=== PATIENT | female | born 1940 | race Caucasian/White ===

== ENCOUNTER → 2017-11-07 | Outpatient (CLI) | payer MEDICARE, BC ==
[~2017-11-07] MED LIST: ACET325T9 PO; ALEN70TA3 PO; ASPI-630 PO; CALC-77 PO; CARV6.25 PO; CHOL200074 PO; ESTR42.53 VG; IBUP200T44 PO; LISI-338 PO; OMEG300C PO; SIMV40TA3 PO; SULF1TAB24 PO
--- NOTE | 2017-11-07 16:08 | RAD ---
DATE: 11/07/2017 EXAM: DIGITAL SCREEN BILAT W/CAD HISTORY: Routine screening COMPARISON: 10/20/2015 This study was interpreted with the benefit of Computerized Aided Detection (CAD). The breast parenchyma shows scattered fibroglandular densities. Breast parenchyma level B. FINDINGS: No new or enlarging breast densities are seen. Benign type calcifications are present in both breasts. No suspicious microcalcifications have developed. IMPRESSION: Stable mammograms without evidence of malignancy. BI-RADS CATEGORY: 2 BENIGN FINDING(S) RECOMMENDED FOLLOW-UP: 12M 12 MONTH FOLLOW-UP PQRS compliance statement: Patient information was entered into a reminder system with a target due date for the next mammogram. Mammography is a sensitive method for finding small breast cancers, but it does not detect them all and is not a substitute for careful clinical examination. A negative mammogram does not negate a clinically suspicious finding and should not result in delay in biopsying a clinically suspicious abnormality. "Our facility is accredited by the [employer] Mammography [employer]."
== END | disposition home or self-care (01) ==
LOC: MAMMO 13:23
PROVIDERS: ATTEND Family Medicine
DX: Z12.31 Encounter for screening mammogram for malignant neoplasm of breast (principal); Z85.3 Personal history of malignant neoplasm of breast
CPT/HCPCS: 77067

== ENCOUNTER → 2018-01-15 | Outpatient (CLI) | payer MEDICARE, BC ==
--- NOTE | 2018-01-15 17:32 | RAD ---
INDICATION: Fall 2 days ago with continued pain on right side. TECHNIQUE: Right rib series with PA chest radiograph contains 5 images. No comparison is available. FINDINGS: There is basilar atelectasis and/ or infiltrate bilaterally. There could be a component of scarring. There is no pneumothorax or pleural effusion apparent. A displaced rib fracture or osseous lesion is not apparent. IMPRESSION: Negative for displaced rib fracture. Basilar opacities are most likely atelectasis. Multifocal pneumonia or component of scarring is considered less likely. Electronically signed by: Andrés Randall MD (01/15/2018 5:29 PM) [facility]
== END | disposition home or self-care (01) ==
LOC: RAD 16:57
PROVIDERS: ATTEND Neuromusculoskeletal Medicine & OMM
DX: R07.81 Pleurodynia (principal); Z85.3 Personal history of malignant neoplasm of breast
CPT/HCPCS: 71101

== ENCOUNTER → 2019-02-14 | Outpatient (CLI) | payer MEDICARE, BC ==
--- NOTE | 2019-02-15 09:38 | RAD ---
DATE: 02/14/2019 1:26 PM EXAM: DIGITAL SCREEN BILAT W/CAD HISTORY: routine screening evaluation. COMPARISON: Prior mammographic imaging 11/07/2017, 04/20/2016 Bilateral CC and MLO views of the breasts were performed. Bilateral breast tomosynthesis was performed in CC and MLO projections. This study was interpreted with the benefit of Computerized Aided Detection (CAD). FINDINGS: Breast Density: SCATTERED The breast parenchyma shows scattered fibroglandular densities. Breast parenchyma level B Benign calcifications are present. The parenchymal pattern appears stable. No suspicious masses, microcalcifications or architectural distortion is present to suggest malignancy in either breast. The visualized axillae are unremarkable. IMPRESSION: No mammographic evidence of malignancy. BI-RADS CATEGORY: 2 BENIGN FINDING(S) RECOMMENDED FOLLOW-UP: 12M 12 MONTH FOLLOW-UP Annual screening mammography is recommended, unless clinically indicated sooner based on symptoms or change in physical exam. PQRS compliance statement: Patient information was entered into a reminder system with a target due date for the next mammogram. Mammography is a sensitive method for finding small breast cancers, but it does not detect them all and is not a substitute for careful clinical examination. A negative mammogram does not negate a clinically suspicious finding and should not result in delay in biopsying a clinically suspicious abnormality. "Our facility is accredited by the [employer] Mammography Program."
== END | disposition home or self-care (01) ==
LOC: MAMMO 12:43
PROVIDERS: ATTEND Family Medicine
DX: Z12.31 Encounter for screening mammogram for malignant neoplasm of breast (principal); N64.89 Other specified disorders of breast
CPT/HCPCS: 77067

== ENCOUNTER → 2019-05-09 | Outpatient (CLI) | payer MEDICARE, BC ==
[~2019-05-09] MED LIST changes: +SIMV40TA18 PO; -SIMV40TA3 PO
--- NOTE | 2019-05-09 15:11 | RAD ---
EXAM: Right ankle 3 views. HISTORY: Right ankle pain after injury. COMPARISON: None. FINDINGS: Three views of the right ankle are obtained. A small ossicle at the tip of the lateral malleolus is consistent with an avulsion fracture there is soft tissue swelling laterally greater than medially. Alignment is normal. Joint spaces are maintained. There is a moderate plantar calcaneal spur. IMPRESSION: 1. Small avulsion fracture at the tip of the lateral malleolus. Electronically signed by: Leanna Martínez MD (05/09/2019 3:08 PM) [facility]
== END | disposition home or self-care (01) ==
LOC: PMG 12:45
PROVIDERS: ATTEND Family Medicine
DX: S82.61XA Displaced fracture of lateral malleolus of right fibula, initial encounter for closed fracture (principal); M77.31 Calcaneal spur, right foot; X58.XXXA Exposure to other specified factors, initial encounter; Y93.89 Activity, other specified; Y92.89 Other specified places as the place of occurrence of the external cause; Y99.8 Other external cause status
CPT/HCPCS: 73610

== ENCOUNTER 2019-08-13 11:00 | Emergency (ER) | payer MEDICARE, BC ==
[~2019-08-13] VITALS: Ht 149.9 cm; Wt 50.4 kg
--- NOTE | 2019-08-13 11:55 | PHYS DOC ---
Past History Past Medical History: High Cholesterol, Hypertension, Hypothyroid, GA, Other Additional Past Medical Histor: IRREGULAR HEART BEAT, OSTEOPOROSIS Past Surgical History: Pacemaker Additional Smoking Information: QUIT IN 1997 Alcohol Use: None Adult General Chief Complaint Chief Complaint: LOWER EXTREMITY SWELLING [facility] 79-year-old female presents with left leg swollen greater than right. The patient noticed this last couple of days. The only thing that has changed recently she is being treated for a UTI. She was given ciprofloxacin 5 days ago. She denies any falls or trauma, however she did have a fall down some stairs 6 weeks ago. This affected her right leg more than her left. She is already on our close but is unsure why. She believes it could be for atrial fibrillation. She denies having a valve transplant. She denies fever or chills. She has had some mild shortness of breath, but no chest pain. Review of Systems Review of Systems Constitutional: Denies fever or chills [] Eyes: Denies change in visual acuity, redness, or eye pain [] HENT: Denies nasal congestion or sore throat [] Respiratory: Mild shortness of breath. Denies cough. [] Cardiovascular: No additional information not addressed in HPI [] GI: Denies abdominal pain, nausea, vomiting, bloody stools or diarrhea [] : Denies dysuria or hematuria [] Musculoskeletal: Left leg swollen more than right[] Integument: Denies rash or skin lesions [] Neurologic: Denies headache, focal weakness or sensory changes [] Endocrine: Denies polyuria or polydipsia [] All other systems were reviewed and found to be within normal limits, except as documented in this note. Allergies Allergies Allergies Coded Allergies Type Severity Reaction Last Updated Verified No Known Drug Allergies 11/07/14 No Physical Exam Physical Exam Constitutional: Well developed, well nourished, no acute distress, non-toxic appearance. [] HENT: Normocephalic, atraumatic, bilateral external ears normal, oropharynx moist, no oral exudates, nose normal. [] Eyes: PERRLA, EOMI, conjunctiva normal, no discharge. [] Neck: Normal range of motion, no tenderness, supple, no stridor. [] Cardiovascular: Heart rate regular rhythm, 3/6 systolic murmur [] Lungs & Thorax: Bilateral breath sounds clear to auscultation [] Abdomen: Bowel sounds normal, soft, no tenderness, no masses, no pulsatile mas ses. [] Skin: Warm, dry, no erythema, no rash. [] Back: No tenderness, no CVA tenderness. [] Extremities: Left lower leg greater than the right from the knee inferior. No obvious signs of trauma.[] Neurologic: Alert and oriented X 3, normal motor function, normal sensory function, no focal deficits noted. [] Psychologic: Affect normal, judgement normal, mood normal. [] Current Patient Data Vital Signs Vital Signs Date Time Temp Pulse Resp B/P (MAP) Pulse Ox O2 Delivery O2 Flow Rate FiO2 08/13/19 11:15 98.4 68 18 139/81 (100) 97 Room Air EKG EKG [] Radiology/Procedures Radiology/Procedures [] Impressions: Left lower extremity venous Doppler dated 08/13/2019. No comparison available. Clinical data indication: Left leg swelling. FINDINGS: Grayscale, color-flow and spectral waveform analysis performed. There is normal compressibility, phasicity and augmentation of flow throughout. No filling defects are seen. There is a complex popliteal cyst measuring up to 6.3 cm craniocaudal. IMPRESSION: 1. No evidence of left lower extremity deep vein thrombosis. 2. Moderate size complex popliteal cyst. Electronically signed by: Stacie Hill MD (08/13/2019 12:41 PM) [facility] DICTATED AND SIGNED BY: STACIE HILL MD DATE: 08/13/19 1241 CC: EZEQUIEL KING DO; LORIN GALEANA MD ~ Course & Med Decision Making Course & Med Decision Making Pertinent Labs and Imaging studies reviewed. (See chart for details) The patient does not have a DVT, but she does have a complex popliteal cyst. See official report for details. Her labs are unremarkable except for a potassium of 3.1. I will give her 40 mEq of oral potassium. She has an elevated proBNP, but this is not age-adjusted. She does not clinically apear to be a CHF exacerbation. Her urinalysis is negative for infection. I have advised the patient that she follow up with her primary care physician to discuss options for this cyst. She is stable for discharge at this time. [] Dragon Disclaimer Dragon Disclaimer This electronic medical record was generated, in whole or in part, using a voice recognition dictation system. Departure Departure: Impression: Primary Impression: Swelling of left lower extremity Additional Impression: Popliteal cyst Disposition: HOME, SELF-CARE Condition: STABLE Referrals: LORIN GALEANA MD (PCP) Patient Instructions: Epidermal Cyst, [id number] Problem Qualifiers Additional Impression: Popliteal cyst Laterality: left Qualified Codes: M71.22 - Synovial cyst of popliteal space [Diaz], left knee EZEQUIEL KING DO Aug 13, 2019 11:55
[2019-08-13 12:30] LABS: CALCIUM 9.3 mg/dL (8.5-10.1); CREATININE 0.9 mg/dL (0.6-1.0); GFR 60.4; POTASSIUM 3.1 mmol/L (3.5-5.1)
[2019-08-13] MEDS ORDERED: IV NORMAL SALINE 500ML 500 ML IV ONE (12:30)
[2019-08-13 12:36] LABS: BASO # 0.1 x10^3/uL (0.0-0.2); BASO % 1 % (0-3); EOS % 0 % (0-3); HEMATOCRIT 38.9 % (36.0-47.0); HEMOGLOBIN 12.7 g/dL (12.0-15.5); LYMPH # 1.1 x10^3/uL (1.0-4.8); LYMPH % 8 % (24-48); MEAN CORPUSCULAR HEMOGLOBIN 29 pg (25-35); MEAN CORPUSCULAR HGB CONC 33 g/dL (31-37); MEAN CORPUSCULAR VOLUME 89 fL (79-100); MONO # 1.2 x10^3/uL (0.0-1.1); MONO % 9 % (0-9); NEUT # 10.9 x10^3uL (1.8-7.7); NEUT % 82 % (31-73); PLATELET COUNT 290 x10^3/uL (140-400); RED CELL DISTRIBUTION WIDTH 14.8 % (11.5-14.5); WHITE BLOOD COUNT 13.3 x10^3/uL (4.0-11.0)
[2019-08-13 12:43] LABS: ALBUMIN 2.9 g/dL (3.4-5.0); ALBUMIN/GLOBULIN RATIO 0.5 (1.0-1.7); TOTAL BILIRUBIN 0.3 mg/dL (0.2-1.0); TOTAL PROTEIN 8.5 g/dL (6.4-8.2)
--- NOTE | 2019-08-13 12:44 | RAD ---
Left lower extremity venous Doppler dated 08/13/2019. No comparison available. Clinical data indication: Left leg swelling. FINDINGS: Grayscale, color-flow and spectral waveform analysis performed. There is normal compressibility, phasicity and augmentation of flow throughout. No filling defects are seen. There is a complex popliteal cyst measuring up to 6.3 cm craniocaudal. IMPRESSION: 1. No evidence of left lower extremity deep vein thrombosis. 2. Moderate size complex popliteal cyst. Electronically signed by: Damon Hill MD (08/13/2019 12:41 PM) [facility]
[2019-08-13] MEDS ORDERED: POTASSIUM CHLORIDE 20 MEQ TABLET.ER. PO ONE (13:15)
[2019-08-13 13:35] LABS: COLOR,URINE YELLOW
[2019-08-13 13:36] LABS: BILIRUBIN,URINE NEG (NEG); CLARITY,URINE HAZY; GLUCOSE,URINE NEG (NEG)
[2019-08-13 13:37] LABS: AMORPHOUS SEDIMENT,UR PRESENT /HPF; BACTERIA,URINE 0 /HPF (0-FEW); NITRITE,URINE NEG (NEG); SQUAMOUS EPITHELIAL CELL,UR FEW /LPF; UROBILINOGEN,URINE 0.2 mg/dL (0.2 mg/dL)
[2019-08-13] MEDS ORDERED: POTASSIUM BICARB 20 MEQ EFFERVESCENT TABLET. PO ONE (14:00)
[2019-08-13 14:28] VITALS: BP 144/58
== END 2019-08-13 14:28 | disposition home or self-care (01) ==
LOC: ER 11:00
DX: R22.42 Localized swelling, mass and lump, left lower limb (principal); M71.22 Synovial cyst of popliteal space [Baker], left knee; E78.5 Hyperlipidemia, unspecified; I10 Essential (primary) hypertension; E03.9 Hypothyroidism, unspecified; I25.2 Old myocardial infarction; Z95.0 Presence of cardiac pacemaker
CPT/HCPCS: 36415; 80053; 81001; 83880; 85025; 87086; 93971; 99284; J7040

== ENCOUNTER 2020-01-28 20:00 | Inpatient (IN) | payer MEDICARE, BC ==
[~2020-01-28] VITALS: Ht 149.9 cm; Wt 52.0 kg
[2020-01-28 22:10] VITALS: BP 160/136
--- NOTE | 2020-01-28 22:10 | NUR ---
Pt admitted to ICU bed 2 from [facility] via [facility] accompanied by EMS. Report given by Tali RENTERIA RN over the phone. Pt transferred from [facility] to bed x1 assist, increased SOA noted. Pt on 2L O2 via NC, increased to 3L to maintain sat >92%. Admission assessment completed. Health history and home medications reviewed with pt, paper list provide by pt. Pt with c/o increased SOA with occasional cough x2 days. Dr Hernandez here and at bedside, orders given. Covid swab obtained, to run as STAT per Dr. Hernandez. ABG obtained by RT, pt tolerated well. May place on Bipap if needed per Dr Hernandez but okay to stay on O2 via NC currently. PT/OT and CM consulted. Eliquis for VTE. POC reviewed with pt, understanding verbalized. Call light within reach. Both daughter were called with pt update. Pt was given Rocephin, Zithromax and albuterol inhaler at [facility] prior to arrival to unit.
[2020-01-28] MEDS ORDERED: SOTA80TA48 PO (22:43)
[2020-01-28] MEDS ORDERED: LEVO50TA5 PO (22:43)
[2020-01-28] MEDS ORDERED: ALBU2.5V8 INH (22:43)
[2020-01-28] MEDS ORDERED: APIX5TAB3 PO (22:43)
[2020-01-28] MEDS ORDERED: CALC250T PO (22:43)
[2020-01-28] MEDS ORDERED: LOSA1TAB25 PO (22:43)
[2020-01-28] MEDS ORDERED: AMLO2.5T5 PO (22:43)
[2020-01-28] MEDS ORDERED: ATOR20TA58 PO (22:43)
[2020-01-28] MEDS ORDERED: VIT1CAPS12 PO (22:43)
--- NOTE | 2020-01-28 22:52 | HP ---
ADMIT DATE: 01/28/2020 ATTENDING PHYSICIAN: Dr. Hernandez. CHIEF COMPLAINT: Shortness of breath. HISTORY OF PRESENT ILLNESS: The patient is a 79-year-old female who was transferred here from the Emergency Room at [facility] and the ER physician contacted me. She has had a 2-day history of increasing shortness of breath. Chest x-ray there demonstrated bibasilar infiltrate, nonspecific interstitial pattern. A COVID-19 swab has been ordered and is pending at this time. She was given breathing treatments along with empiric initial dose of ceftriaxone and Zithromax. By the time she got here, she was already on supplemental oxygen. She was using her accessory muscles to help breathe. She is tachypneic and tachycardic. We have her admitted here with community-acquired pneumonia. Certainly, she is COVID-19 positive until proven otherwise. She already is on apixaban for either blood clots or atrial fibrillation. She could not give much history. In addition, I have ordered Decadron and Solu-Medrol to help with her breathing status along with nebulizer therapy. PAST MEDICAL HISTORY: Significant for essential hypertension, hyperlipidemia, hypothyroidism, on replacement. ALLERGIES: She has no known drug allergies. SOCIAL HISTORY: She is a nonsmoker, nondrinker. CURRENT MEDICATIONS: Include the following: She was reported to be taking aspirin daily, calcium, Coreg 6.25 mg b.i.d., vitamin D3, estradiol, ibuprofen, lisinopril 5 mg daily, omega 3 fatty acids and Zocor. FAMILY HISTORY: Unobtainable. The patient appears very confused. She has a daughter who lives locally. I am in the process of communicating with her. REVIEW OF SYSTEMS: Significant for the recent illness. She denied any fevers, cough, congestion. SURGICAL HISTORY: Includes cardiac catheterization, hysterectomy, bilateral cataract extractions and permanent pacemaker placement in 01/2018. According to the history she had smoked in the past briefly. She quit in 1997. There is no alcohol use. Once again family history is unobtainable. REVIEW OF SYSTEMS: Significant for the symptoms that brought her into the Emergency Department. No recent travel or COVID exposure. Due to her confusion the rest of the detailed review of systems was difficult to obtain. PHYSICAL EXAMINATION: GENERAL: When I saw her, this is a pleasant elderly female who appears a bit confused. INITIAL VITAL SIGNS At the Emergency Room showed a blood pressure of 149/55 mmHg, temperature was 99.2 degrees Fahrenheit, pulse 74-90 regular, respirations 23 per minute, and shallow, oxygen saturation were 98% on supplemental oxygen 2 liters. HEENT: Head is without trauma. The pupils are reactive. Sclerae are nonicteric. The oropharynx is clear. NECK: Supple. LUNGS: Diminished breath sounds, bibasilar crackles. CARDIOVASCULAR: Showed distant heart tones. No gallops. Peripheral pulses are palpable and full. ABDOMEN: Soft, scaphoid, nontender, no organomegaly. Bowel sounds are hypoactive. EXTREMITIES: Showed no cyanosis. Trace edema. NEUROLOGIC: Focally intact. She remains a bit confused in answering questions. X-rays demonstrated bibasilar infiltrates consistent with interstitial pattern. She has a 2-lead pacemaker with battery pack in the left chest. There is a generalized increased interstitial airspace opacity in the perihilar lung and lung bases related to edema or infectious infiltrate. Findings are superimposed upon chronic scarring and fibrosis in the lungs. There is no pleural effusion or pneumothorax identified. Her BNP was 667. Cardiac enzymes negative for myocardial necrosis. A venous lactate level is 1.9 within range. D-dimer was 0.94, but she is already on Eliquis. Her electrolytes showed sodium 137 mEq, potassium 4.0. Nonfasting blood sugar 166, creatinine is 0.7 mg/dL. In the ED, she was given albuterol inhaler therapy along with ceftriaxone. Her hemoglobin is 11.7 g/dL with white count of 10,200. ASSESSMENT: 1. This 79-year-old female has bibasilar pneumonia, atypical in nature. 2. COVID-19 coronavirus must be ruled out. 3. Chronic respiratory failure. 4. Essential hypertension. 5. History of permanent pacemaker. 6. Degenerative arthritis. 7. Component of underlying dementia. PLAN: 1. Admit to our Intensive Care Unit. 2. Intravenous Rocephin along with Zithromax shall be continued. 3. I have ordered a dose of Decadron. I will order Solu-Medrol for wheezing. 4. BiPAP will be available on hand, if respiratory symptoms worsen. 5. Await results of COVID-19 swab. 6. COVID-19 precautions. 7. I will try to contact her daughter to ascertain her mental status and her code status. PHYLLIS HERNANDEZ MD DR: ESTELLA/bertin JOB#: [id number] / [id number] LORIN Elmore MD
[2020-01-28 22:55] LABS: BGAS PH 7.32 (7.35-7.45)
[2020-01-28] MEDS ORDERED: ACETAMINOPHEN 325 MG TABLET PO PRN (23:15)
[2020-01-28] MEDS: DEXAMETHASONE SOD PHOS 4 MG/ML VIAL. IV SCH (23:31)
[2020-01-28] MEDS: APIXABAN 5 MG TABLET. PO SCH (23:31)
[2020-01-28 23:50] VITALS: BP 100/62
[2020-01-29] VITALS (13 sets, daily range): BP systolic 97–155; BP diastolic 38–116
[2020-01-29] MEDS: LEVOTHYROXINE 50 MCG TABLET PO SCH (05:43)
[2020-01-29 05:52] LABS: BASO % 0 % (0-3); EOS % 0 % (0-3); HEMATOCRIT 35.6 % (36.0-47.0); HEMOGLOBIN 11.6 g/dL (12.0-15.5); LYMPH # 0.6 x10^3/uL (1.0-4.8); LYMPH % 5 % (24-48); MEAN CORPUSCULAR HEMOGLOBIN 30 pg (25-35); MEAN CORPUSCULAR HGB CONC 33 g/dL (31-37); MEAN CORPUSCULAR VOLUME 90 fL (79-100); MONO # 0.3 x10^3/uL (0.0-1.1); MONO % 2 % (0-9); NEUT # 11.1 x10^3uL (1.8-7.7); NEUT % 93 % (31-73); PLATELET COUNT 198 x10^3/uL (140-400); RED BLOOD COUNT 3.95 x10^6/uL (3.50-5.40); RED CELL DISTRIBUTION WIDTH 14.7 % (11.5-14.5)
--- NOTE | 2020-01-29 06:00 | NUR ---
Pt appears anxious and still very tachypneic after allowing some time to settle in after admission. Pt has been sitting straight up in bed in tripod position since she has arrived to unit on 3L NC with O2 sat ranging from 89-93%. Pt given PRN Ativan at around 2340 along with pt Eliquis as ordered. Pt seemed to settle down and relax after administration. Pt was able to sleep some and have HOB lowered down some. O2 sat also improved while sleeping at 92-97%. Oral & denture care given and assisted up to BSC this AM to void, appeared less SOA while up moving around.
[2020-01-29 06:06] LABS: ALBUMIN 2.8 g/dL (3.4-5.0); ALBUMIN/GLOBULIN RATIO 0.6 (1.0-1.7); CALCIUM 8.8 mg/dL (8.5-10.1); CREATININE 0.8 mg/dL (0.6-1.0); GFR 69.2; POTASSIUM 4.1 mmol/L (3.5-5.1); TOTAL BILIRUBIN 0.2 mg/dL (0.2-1.0); TOTAL PROTEIN 7.6 g/dL (6.4-8.2)
[2020-01-29] MEDS ORDERED: NON FORMULARY ITEM (Losartan/Hydrochlorothiazide (Losartan-Hctz 100-12.5 Mg Tab) 1 EACH) PO SCH (09:00)
--- NOTE | 2020-01-29 09:15 | NUR ---
IP: patient PUI for COVID-19, requires contact and airborne precautions.
[2020-01-29] MEDS: DEXAMETHASONE SOD PHOS 4 MG/ML VIAL. IV SCH ×2 (10:18→20:49)
[2020-01-29] MEDS: SOTALOL 80 MG TABLET. PO SCH ×2 (10:18→20:48)
[2020-01-29] MEDS: APIXABAN 5 MG TABLET. PO SCH ×2 (10:22→20:49)
[2020-01-29] MEDS: amLODIPine BESYLATE 2.5 MG TABLET PO SCH (10:22)
[2020-01-29] MEDS: hydroCHLOROthiazide 12.5 MG CAPSULE PO SCH (10:22)
[2020-01-29] MEDS: LOSARTAN 50 MG TABLET. PO SCH (10:23)
--- NOTE | 2020-01-29 16:00 | NUR ---
pt has had a good day, has been able to be titrated down and off oxygen, while maintaining o2 sats greater than 94%. Pt has not been anxious today. Pt is able to expectorate some sputum, which has been yellow. PT and OT have both worked with pt today. Pt is doing well at ambulating around in her room. She has spoke to both daughters on the phone as well as this RN has spoken with both daughters during this shift. Covid swab was sent to [facility], which make take longer to receive results back.
--- NOTE | 2020-01-29 19:08 | PN ---
DATE: 01/29/2020 SUBJECTIVE: The patient is sitting in her chair comfortably in no apparent respiratory distress. On questioning her, she stated that she is coughing more. She has yellowish thick sputum. Denied any chest pain. Did have some shortness of breath. PHYSICAL EXAMINATION: GENERAL: When I examined her, she looked somewhat pale. No jaundice, cyanosis or thyromegaly. No jugular venous distention. No lower limb edema. VITAL SIGNS: Her heart rate was 61, blood pressure was 104/60, temperature was 98, respiratory rate was 20 and oxygen saturation was 95% on 2.5 liters of oxygen. HEAD, EYES, EARS, NOSE AND THROAT: Showed normocephalic, atraumatic. NECK: Supple. HEART: Normal first and second heart sounds. No gallop or murmur. CHEST: Showed central trachea, equally reduced expansion, reduced air entry, vesicular sounds. No crepitation or rhonchi. ABDOMEN: Distended, soft, nontender. NEUROLOGIC: She is awake, alert, responding appropriately. All cranial nerves intact. She moves extremities without difficulty. She apparently ambulates without assistance or assistive devices. LABORATORY DATA: As of this morning showed a white cell count 12,000, hemoglobin 11.6, hematocrit 36, MCV 90 and platelet count of 198,000. Her chemistry showed a serum sodium of 139, potassium 4.1, chloride 101, bicarbonate 29, anion gap of 9, BUN 15, creatinine 0.8, estimated GFR was 69 mL per minute. Her glucose was 165, calcium was 8.8. Total bilirubin, AST, ALT, alkaline phosphatase were normal. His total protein was 7.6, albumin was 2.8. Her blood gases as of yesterday showed a pH of 7.32, pCO2 of 54, pO2 of 90, bicarbonate 28, and oxygen saturation was 96% on FiO2 of 36%. IMPRESSION: 1. In summary, this is a 79-year-old female patient who was admitted with bilateral lower lobe pneumonia that could be atypical pneumonia versus COVID-19 coronavirus. 2. Chronic respiratory failure. 3. Hypertension. 4. Atrial fibrillation, status post permanent pacemaker. 5. Degenerative osteoarthritis, questionable underlying dementia. PLAN: To continue with IV antibiotic in the form of Zithromax and Rocephin. Continue with dexamethasone, continue with oxygen supplementation. We will monitor her heart rate and decide on further management accordingly. BUNNY MOISE MD DR: MARK/bertin JOB#: [id number] / [id number]
[2020-01-29] MEDS: LACTOBACILLUS RHAMNOSUS GG 1 CAPSULE. PO SCH (20:49)
[2020-01-29] MEDS: ATORVASTATIN CALCIUM 20 MG TABLET PO SCH (20:49)
[2020-01-29] MEDS: AZITHROMYCIN 500 MG in IV NORMAL SALINE 250ML 250 ML IV SCH (21:52)
[2020-01-30 03:15] VITALS: BP 102/47
[2020-01-30] MEDS: LEVOTHYROXINE 50 MCG TABLET PO SCH (06:11)
[2020-01-30 06:41] LABS: BASO % 0 % (0-3); EOS % 0 % (0-3); HEMATOCRIT 35.9 % (36.0-47.0); HEMOGLOBIN 11.8 g/dL (12.0-15.5); LYMPH # 0.9 x10^3/uL (1.0-4.8); LYMPH % 6 % (24-48); MEAN CORPUSCULAR HEMOGLOBIN 29 pg (25-35); MEAN CORPUSCULAR HGB CONC 33 g/dL (31-37); MEAN CORPUSCULAR VOLUME 90 fL (79-100); MONO # 0.5 x10^3/uL (0.0-1.1); MONO % 4 % (0-9); NEUT # 12.6 x10^3uL (1.8-7.7); NEUT % 90 % (31-73); PLATELET COUNT 217 x10^3/uL (140-400); RED BLOOD COUNT 4.01 x10^6/uL (3.50-5.40); RED CELL DISTRIBUTION WIDTH 14.9 % (11.5-14.5); WHITE BLOOD COUNT 14.1 x10^3/uL (4.0-11.0)
[2020-01-30 06:52] LABS: ALBUMIN 2.9 g/dL (3.4-5.0); ALBUMIN/GLOBULIN RATIO 0.7 (1.0-1.7); CALCIUM 8.4 mg/dL (8.5-10.1); GFR 53.5; POTASSIUM 3.8 mmol/L (3.5-5.1); TOTAL BILIRUBIN 0.2 mg/dL (0.2-1.0); TOTAL PROTEIN 7.1 g/dL (6.4-8.2)
[2020-01-30 07:00] VITALS: BP 144/61
[2020-01-30] MEDS: DEXAMETHASONE SOD PHOS 4 MG/ML VIAL. IV SCH (09:59)
[2020-01-30] MEDS: amLODIPine BESYLATE 2.5 MG TABLET PO SCH (09:59)
[2020-01-30] MEDS: hydroCHLOROthiazide 12.5 MG CAPSULE PO SCH (10:00)
[2020-01-30] MEDS: LACTOBACILLUS RHAMNOSUS GG 1 CAPSULE. PO SCH ×2 (10:00→20:36)
[2020-01-30] MEDS: APIXABAN 5 MG TABLET. PO SCH ×2 (10:01→20:37)
[2020-01-30] MEDS: LOSARTAN 50 MG TABLET. PO SCH (10:01)
[2020-01-30] MEDS: SOTALOL 80 MG TABLET. PO SCH ×2 (10:02→20:37)
[2020-01-30 11:00] VITALS: BP 113/50
[2020-01-30] MEDS ORDERED: DEXAMETHASONE SOD PHOS 4 MG/ML VIAL. IV SCH (14:00)
[2020-01-30 15:00] VITALS: BP 122/52
--- NOTE | 2020-01-30 16:11 | PN ---
DATE: 01/30/2020 SUBJECTIVE: The patient is resting, slightly propped up in bed, in no apparent respiratory distress. She continued to have cough, it is mostly dry with scanty whitish sputum, but feels generally much improved, has been up and about, but denied any shortness of breath. PHYSICAL EXAMINATION: GENERAL: When I examined her, she looked well and was clearly in no apparent respiratory distress, pale, not jaundiced, cyanosis, or thyromegaly. No jugular venous distension. No limb edema. VITAL SIGNS: Her heart rate was 79, blood pressure was 113/50, temperature was 98.4, respiratory rate was 19 and oxygen saturation was 97% on room air. HEAD, EYES, NOSE, AND THROAT: Showed normocephalic, atraumatic. NECK: Supple. HEARD: Normal first and second heart sounds. No gallop or murmur. CHEST: Clear to auscultation. No crepitation or rhonchi. ABDOMEN: Distended, soft. NEUROLOGIC: She is awake, alert, responding appropriately. Cranial nerves intact. Her intake and output are incompletely recorded. LABORATORY DATA: Her lab work this morning showed a white cell count 14,000, hemoglobin 11.8, hematocrit 35, MCV 90 and platelet count 217,000. Serum sodium was 142, potassium 3.8, chloride 103, bicarbonate 29, anion gap of 10, BUN 25, creatinine 1, estimated GFR was 54 mL per minute. Her glucose 151, calcium was 8.4. Total bilirubin, AST, ALT, alkaline phosphatase were normal. Total protein 7.1, albumin was 2.9. ASSESSMENT: 1. A 79-year-old female patient who was admitted with bilateral lower lobe pneumonia with acute atypical pneumonia versus COVID-19 coronavirus. 2. Chronic respiratory failure. 3. Hypertension. 4. Atrial fibrillation, status post permanent pacemaker. 5. Degenerative osteoarthritis. 6. Questionable underlying dementia. PLAN: To continue the IV antibiotic in the form of Zithromax and Rocephin. Continue with dexamethasone. Continue the oxygen supplementation and await the result of the COVID-19. BUNNY MOISE MD DR: MARK/bertin JOB#: [id number] / [id number]
[2020-01-30 19:35] VITALS: BP 123/63
[2020-01-30] MEDS: ATORVASTATIN CALCIUM 20 MG TABLET PO SCH (20:36)
[2020-01-30] MEDS: AZITHROMYCIN 500 MG in IV NORMAL SALINE 250ML 250 ML IV SCH (21:19)
[2020-01-30 22:50] VITALS: BP 118/67
[2020-01-31 02:50] VITALS: BP 123/39
[2020-01-31 03:50] VITALS: BP 122/48
[2020-01-31] MEDS: LEVOTHYROXINE 50 MCG TABLET PO SCH (05:54)
[2020-01-31 06:05] VITALS: BP 154/67
[2020-01-31 06:15] LABS: HEMATOCRIT 34.1 % (36.0-47.0); RED BLOOD COUNT 3.77 x10^6/uL (3.50-5.40); WHITE BLOOD COUNT 11.4 x10^3/uL (4.0-11.0)
[2020-01-31 06:25] LABS: CALCIUM 8.2 mg/dL (8.5-10.1); CREATININE 0.9 mg/dL (0.6-1.0); GFR 60.4; POTASSIUM 3.4 mmol/L (3.5-5.1)
--- NOTE | 2020-01-31 06:25 | NUR ---
Pt up in chair watching TV during change of shift and sat in chair till bedtime (around 2300). Pt stated that she had a "good day and is off the oxygen". Pt with occasional cough with yellow sputum, which has been yellow. Pt up a few times to BSC to void during night, minimal assist needed. O2 sat monitored during night for needed of PRN oxygen. Pt did NOT need O2 during night, maintaining O2 sat >92%. Pt Covid swab came back negative and pt was very excited with that result.
[2020-01-31 06:53] LABS: ALBUMIN 2.5 g/dL (3.4-5.0); ALBUMIN/GLOBULIN RATIO 0.6 (1.0-1.7); TOTAL BILIRUBIN 0.2 mg/dL (0.2-1.0); TOTAL PROTEIN 6.7 g/dL (6.4-8.2)
[2020-01-31] MEDS: SOTALOL 80 MG TABLET. PO SCH (08:19)
[2020-01-31] MEDS: LACTOBACILLUS RHAMNOSUS GG 1 CAPSULE. PO SCH (08:20)
[2020-01-31] MEDS: LOSARTAN 50 MG TABLET. PO SCH (08:21)
[2020-01-31] MEDS: APIXABAN 5 MG TABLET. PO SCH (08:23)
[2020-01-31] MEDS: hydroCHLOROthiazide 12.5 MG CAPSULE PO SCH (08:23)
[2020-01-31] MEDS: amLODIPine BESYLATE 2.5 MG TABLET PO SCH (08:23)
[2020-01-31 08:37] VITALS: BP 152/66
[2020-01-31] MEDS ORDERED: DEXAMETHASONE SOD PHOS 4 MG/ML VIAL. IV SCH (09:00)
[2020-01-31 12:00] VITALS: BP 126/53
[2020-01-31] MEDS ORDERED: AZIT250T PO (14:08)
[2020-01-31] MEDS ORDERED: CEFD300C PO (14:08)
--- NOTE | 2020-01-31 15:07 | DS ---
DATE OF DISCHARGE: HOSPITAL COURSE: The patient is resting, slightly propped up in bed, in no apparent distress. She is awake, alert and denied any complaint, in particular denied any shortness of breath, cough, phlegm. She is maintaining her oxygen saturation at 99% on room air. She has been up and about with a walker and she remains hemodynamically stable and afebrile with normal white cell count, and a decision was made to discharge her home with home health. PHYSICAL EXAMINATION: GENERAL: When I saw her this morning, she looked well and was clearly in no apparent respiratory distress, pale, but not jaundiced, cyanosed from thyromegaly. No jugular venous distention. No limb edema. VITAL SIGNS: Her heart rate was 62, blood pressure was 126/53, temperature 98.3, respiratory rate 20, and oxygen saturation was 99% on room air. HEAD, EYES, EARS, NOSE AND THROAT: Normocephalic, atraumatic. NECK: Supple. HEART: Showed normal first and second heart sounds. No gallop, rub or murmur. CHEST: Clear to auscultation. No crepitation or rhonchi. ABDOMEN: Distended, soft, nontender. No guarding or rigidity. No organomegaly. All hernial orifices intact. Bowel sounds normal. NEUROLOGIC: She is grossly intact. Her intake was 1590, output was 500. LABORATORY DATA: Her lab work this morning showed a white cell count of 11,400, hemoglobin 11, hematocrit 34, MCV 91, and platelet count 237,000. Her chemistry showed a serum sodium 144, potassium 3.4, chloride 106, bicarbonate 28, anion gap of 10, BUN 28, creatinine 0.9, estimated GFR was 60 mL per minute. Her glucose was 106, calcium was 8.2. Total bilirubin, AST, ALT, alkaline phosphatase were normal. Total protein was 6.7, albumin was 2.5. Her COVID-19 by PCR was not detectable. DISCHARGE MEDICATIONS: She was discharged home to continue on cefdinir 300 mg twice a day for 7 days, Zithromax 250 mg once a day for 3 more days, albuterol sulfate 1 puff every 4 hours as needed, alendronate or Fosamax 70 mg once a week, amlodipine besylate 2.5 mg 1 tablet once a day, apixaban 5 mg twice a day, atorvastatin calcium 20 mg at bedtime, calcium citrate 250 mg daily, cholecalciferol (vitamin D3) 2000 units once a day, levothyroxine 50 mcg once a day, losartan/hydrochlorothiazide 100/12.5 mg once a day, omega-3 fatty acids 1 tablet once a day, sotalol 120 mg twice a day, PreserVision AREDS Soft Gels 2 capsules twice a day. FINAL DISCHARGE DIAGNOSES: 1. Community-acquired pneumonia, resolved. Her COVID-19 by PCR was negative. 2. Chronic respiratory failure. 3. Hypertension. 4. Atrial fibrillation, status post permanent pacemaker, rate controlled, on sotalol. We will anticoagulate on apixaban. 5. Degenerative osteoarthritis. 6. Questionable underlying dementia. BUNNY MOISE MD DR: MARK/bertin JOB#: [id number] / [id number]
--- NOTE | 2020-01-31 16:35 | NUR ---
Pt. left on own power walking out of the building with her four pronged cane in her street clothes with purse, belongings, and discharge paperwork/ scripts in hand. Daughter waiting to pick her up and handed all belongings to her.
== END 2020-01-31 16:25 | disposition home health service (06) | DRG 871 ==
LOC: ICU 20:00
PROVIDERS: ADMIT Hospitalist; ATTEND Internal Medicine
DX: A41.9 Sepsis, unspecified organism (principal); J18.9 Pneumonia, unspecified organism; J96.10 Chronic respiratory failure, unspecified whether with hypoxia or hypercapnia; I48.91 Unspecified atrial fibrillation; I10 Essential (primary) hypertension; M19.90 Unspecified osteoarthritis, unspecified site; E03.9 Hypothyroidism, unspecified; Z20.828 Contact with and (suspected) exposure to other viral communicable diseases; F03.90 Unspecified dementia, unspecified severity, without behavioral disturbance, psychotic disturbance, mood disturbance, and anxiety; E78.5 Hyperlipidemia, unspecified; Z95.0 Presence of cardiac pacemaker; Z98.41 Cataract extraction status, right eye; Z98.42 Cataract extraction status, left eye; Z87.891 Personal history of nicotine dependence; Z90.710 Acquired absence of both cervix and uterus
CPT/HCPCS: 36415; 36600; 80053; 82803; 85025; 85027; J0456; J0696; J1100; J2060; J7050; 97110; 97116; 97530; 97535; U0003-CS

== ENCOUNTER 2020-12-10 02:07 | Inpatient (IN) | payer MEDICARE, BC ==
[~2020-12-10] VITALS: Ht 149.9 cm; Wt 54.5 kg
[~2020-12-10 02:07] MED LIST changes: +ALBU2.5V8 INH; +AMLO2.5T5 PO; +APIX5TAB3 PO; +ATOR20TA58 PO; +AZIT250T PO; +CALC250T PO; +CEFD300C PO; +LEVO50TA5 PO; -LISI-338 PO; +LISI-517 PO; +LOSA1TAB25 PO; +SOTA80TA48 PO; +VIT1CAPS12 PO
[2020-12-10] MEDS ORDERED: IV NORMAL SALINE 1,000ML 1,000 ML IV ONE (02:15)
--- NOTE | 2020-12-10 02:26 | PHYS DOC ---
Past History Past Medical History: High Cholesterol, Hypertension, Hypothyroid, LA, Other Additional Past Medical Histor: IRREGULAR HEART BEAT, OSTEOPOROSIS Past Surgical History: Pacemaker Alcohol Use: None General Adult EDM: Chief Complaint: SHORTNESS OF BREATH HPI: HPI: 80-year-old female presents via EMS with shortness of breath and fall at home. The patient was walking from the bedroom to the bathroom and she fell. She is not exactly sure if she tripped over something or not. She does not believe she was knocked unconscious. Her life alert called paramedics. The paramedics spent about 30 minutes helping the patient at her home and they noticed that her oxygen level was dropping so they brought her to the emergency room. She got down into the 80s. The patient is not on oxygen at baseline. She feels mildly short of breath but denies chest pain. She states that she is peeing "all the time". She started an antibiotic for UTI 2 days ago. She has been taking her medication twice a day. She does not member the name of the medication. She denies fever or chills. She was 99.1 on arrival. She has no other complaints this time. Review of Systems: Review of Systems: Constitutional: Denies fever or chills Eyes: Denies change in visual acuity HENT: Denies nasal congestion or sore throat Respiratory: shortness of breath Cardiovascular: Denies chest pain or edema GI: Denies abdominal pain, nausea, vomiting, bloody stools or diarrhea : Denies dysuria Musculoskeletal: Denies back pain or joint pain Integument: Denies rash Neurologic: Denies headache, focal weakness or sensory changes Endocrine: Denies polyuria or polydipsia Lymphatic: Denies swollen glands Psychiatric: Denies depression or anxiety Current Medications: Current Meds: Current Medications Medications (Trade) Dose Ordered Sig/Darryl Start Time Stop Time Status Last Admin Dose Admin Sodium Chloride 1,000 ml @ 1,000 mls/hr 1X ONCE 12/10/20 02:15 12/10/20 03:14 Allergies: Allergies: Allergies Coded Allergies Type Severity Reaction Last Updated Verified No Known Drug Allergies 11/07/14 No Physical Exam: PE: Constitutional: Well developed, well nourished, no acute distress, non-toxic appearance. [] HENT: Normocephalic, atraumatic, bilateral external ears normal, oropharynx moist, no oral exudates, nose normal. [] Eyes: PERRLA, EOMI, conjunctiva normal, no discharge. [] Neck: Normal range of motion, no tenderness, supple, no stridor. [] Cardiovascular: Heart rate regular rhythm, no murmur [] Lungs & Thorax: Bilateral breath sounds diminished but clear to auscultation. On 4 L nasal cannula [] Abdomen: Bowel sounds normal, soft, no tenderness, no masses, no pulsatile masses. [] Skin: Warm, dry, no erythema, no rash. [] Back: No tenderness, no CVA tenderness. [] Extremities: No tenderness, no cyanosis, no clubbing, ROM intact, no edema. [] Neurologic: Alert and oriented X 3, normal motor function, normal sensory function, no focal deficits noted. [] Psychologic: Affect normal, judgement normal, mood normal. [] EKG: EKG: [] Radiology/Procedures: Radiology/Procedures: [] Impressions: XR CHEST 1V History: Reason: SOB / Spl. Instructions: / History: Comparison: January 15, 2018 Findings: Hyperflexion with emphysematous changes. Increased reticular interstitial opacities. No pneumothorax. No pleural effusion. Left-sided pacemaker. Normal heart size. Impression: 1. Increased diffuse reticular interstitial opacities, may represent chronic interstitial changes although superimposed early pulmonary edema or infection is possible. Electronically signed by: Wil Helton DO (12/10/2020 2:57 AM) [facility] DICTATED AND SIGNED BY: WIL HELTON DO DATE: 12/10/20 0256 CC: EZEQUIEL KING DO; LORIN GALEANA MD ~MTH0 0 Heart Score: C/O Chest Pain: N/A Risk Factors: Risk Factors: DM, Current or recent (<one month) smoker, HTN, HLP, family history of CAD, obesity. Risk Scores: Score 0 - 3: 2.5% MACE over next 6 weeks - Discharge Home Score 4 - 6: 20.3% MACE over next 6 weeks - Admit for Clinical Observation Score 7 - 10: 72.7% MACE over next 6 weeks - Early Invasive Strategies Course & Med Decision Making: Course & Med Decision Making Pertinent Labs and Imaging studies reviewed. (See chart for details) The patient is on 4 L nasal cannula keep her oxygen 96%. She states that she does not really feel short of breath. She mostly concerned about peeing all the time. She denies being on oxygen at home. She has never been diagnosed with COPD but admits to a 20-year smoking history. The patient's chest x-ray suggest possible early pneumonia. See official read for more details on differential. Her labs are remarkable for a white count of 13 8. She has an elevated proBNP of 1500. Given her white count and presentation I am more concerned with possible pneumonia and I will treat her with Rocephin and azithromycin. We will admit the patient to the hospital. I spoke with Dr. Hernandez and he has accepted the patient for admission. [] Dragon Disclaimer: Dragon Disclaimer: This electronic medical record was generated, in whole or in part, using a voice recognition dictation system. Departure Departure: Impression: Primary Impression: CAP (community acquired pneumonia) Disposition: ADMITTED INPATIENT Admitting Physician: Carlos Hernandez Condition: STABLE Referrals: LORIN GALEANA MD (PCP) EZEQUIEL KING DO Dec 10, 2020 02:26
[2020-12-10 02:42] LABS: BASO # 0.1 x10^3/uL (0.0-0.2); BASO % 0 % (0-3); EOS # 0.1 x10^3/uL (0.0-0.7); EOS % 1 % (0-3); HEMATOCRIT 38.4 % (36.0-47.0); HEMOGLOBIN 12.8 g/dL (12.0-15.5); LYMPH # 0.3 x10^3/uL (1.0-4.8); LYMPH % 3 % (24-48); MEAN CORPUSCULAR HEMOGLOBIN 30 pg (25-35); MEAN CORPUSCULAR HGB CONC 33 g/dL (31-37); MEAN CORPUSCULAR VOLUME 89 fL (79-100); MONO # 0.7 x10^3/uL (0.0-1.1); MONO % 5 % (0-9); NEUT # 12.6 x10^3uL (1.8-7.7); NEUT % 91 % (31-73); PLATELET COUNT 177 x10^3/uL (140-400); RED BLOOD COUNT 4.31 x10^6/uL (3.50-5.40); RED CELL DISTRIBUTION WIDTH 14.3 % (11.5-14.5); WHITE BLOOD COUNT 13.8 x10^3/uL (4.0-11.0)
[2020-12-10 02:48] LABS: CALCIUM 8.9 mg/dL (8.5-10.1); CREATININE 1.1 mg/dL (0.6-1.0); GFR 47.8
--- NOTE | 2020-12-10 02:59 | RAD ---
XR CHEST 1V History: Reason: SOB / Spl. Instructions: / History: Comparison: January 15, 2018 Findings: Hyperflexion with emphysematous changes. Increased reticular interstitial opacities. No pneumothorax. No pleural effusion. Left-sided pacemaker. Normal heart size. Impression: 1. Increased diffuse reticular interstitial opacities, may represent chronic interstitial changes al though superimposed early pulmonary edema or infection is possible. Electronically signed by: Wil Hleton DO (12/10/2020 2:57 AM) [facility]
[2020-12-10 03:02] LABS: ALBUMIN 3.3 g/dL (3.4-5.0); ALBUMIN/GLOBULIN RATIO 0.7 (1.0-1.7); TOTAL BILIRUBIN 0.5 mg/dL (0.2-1.0); TOTAL PROTEIN 8.1 g/dL (6.4-8.2)
[2020-12-10] MEDS ORDERED: AZITHROMYCIN 500 MG in IV NORMAL SALINE 250ML 250 ML IV ONE (03:30)
[2020-12-10] MEDS ORDERED: ONDANSETRON PF 4 MG/2 ML VIAL. IVP PRN (03:30)
--- NOTE | 2020-12-10 03:36 | EKG ---
[address] [address] Test Date: 2020-12-10 Test Time: 02:13:47 Pat Name: ELIZA NG Department: Room: Gender: F Method Consultant: : 1940 Requested By: EZEQUIEL KING Order Number: [id number] Reading MD: Measurements Intervals Clements Rate: 82 P: 131 LA: 198 QRS: 45 QRSD: 98 T: 24 QT: 398 QTc: 468 Interpretive Statements SINUS RHYTHM NORMAL ECG RI6.02 No previous ECG available for comparison
[2020-12-10] MEDS ORDERED: AZITHROMYCIN 500 MG VIAL. IV ONE (03:54)
[2020-12-10] MEDS ORDERED: cefTRIAXone SODIUM 1 GM VIAL ONE (03:54)
[2020-12-10] MEDS ORDERED: IV NORMAL SALINE 50ML 50 ML ONE (03:54)
[2020-12-10] MEDS ORDERED: IV NORMAL SALINE 250ML 250 ML ONE (03:54)
--- NOTE | 2020-12-10 04:10 | NUR ---
The patient, ELIZA NG, 80 y/o, F admitted by PHYLLIS HERNANDEZ MD, was given written information regarding hospital policies, unit procedures and contact persons. Valuables were checked and logged. Call light in reach.
[2020-12-10 04:24] VITALS: BP 149/61
[2020-12-10] MEDS ORDERED: OLME40TA12 PO (06:25)
[2020-12-10] MEDS ORDERED: [UNRECOGNIZED DRUG - CODE] PO (06:25)
[2020-12-10] MEDS ORDERED: HYDR12.58 PO (06:25)
[2020-12-10 08:13] LABS: BILIRUBIN,URINE NEG (NEG); CLARITY,URINE CLOUDY; COLOR,URINE AMBER; GLUCOSE,URINE NEG (NEG)
[2020-12-10 08:14] LABS: NITRITE,URINE NEG (NEG); UROBILINOGEN,URINE 0.2 mg/dL (0.2 mg/dL)
[2020-12-10 08:15] LABS: BACTERIA,URINE FEW /HPF (0-FEW); RBC,URINE >40 /HPF (0-2)
[2020-12-10 08:16] LABS: SQUAMOUS EPITHELIAL CELL,UR OCC /LPF
[2020-12-10] MEDS: LACTOBACILLUS RHAMNOSUS GG 1 CAPSULE. PO SCH ×2 (09:22→21:40)
[2020-12-10] MEDS ORDERED: POTASSIUM CHLORIDE 20 MEQ TABLET.ER. PO SCH (11:30)
--- NOTE | 2020-12-10 11:31 | HP ---
ADMIT DATE: 12/10/2020 ATTENDING PHYSICIAN: Dr. Hernandez CHIEF COMPLAINT: Shortness of breath. HISTORY OF PRESENT ILLNESS: The patient is an 80-year-old female who lives independently at home. She lives alone. She had fallen the other day, tripped over a throw rug. She has also had increasing shortness of breath. Extensive evaluation in the ED showed evidence of interstitial edema consistent with congestive heart failure, pneumonia cannot be ruled out. I doubt that she has pneumonia, she has been afebrile. She has had orthopnea, 3 pillows. Her ankles have not been swollen. She has a history of heart failure, paroxysmal atrial fibrillation. She is on chronic Eliquis. 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 I asked her about the details. She could not tell me whether she had a recent echocardiogram and whether she has coronary ischemia workup. We will try to track that down. The patient was admitted for treatment and evaluation. PAST MEDICAL HISTORY: Significant for the paroxysmal atrial fibrillation, hypertension, degenerative arthritis and osteoporosis. ALLERGIES: She has no recorded drug allergies. SOCIAL HISTORY: She is a nonsmoker, nondrinker. CURRENT MEDICATIONS: Schedule includes alendronate weekly, amlodipine 2.5 mg daily, Eliquis 5 mg b.i.d., Lipitor, calcium, vitamin D2, hydrochlorothiazide, Synthroid, olmesartan, omega-3 fish oil, Betapace 240 daily and vitamin C. FAMILY HISTORY: Noncontributory. REVIEW OF SYSTEMS: Significant for the 3-pillow orthopnea. No chest pain or palpitation. She had fallen recently. Her memory has been fair. She is edentulous. Her appetite has been fair. All other systems reviewed and turned to be negative. PHYSICAL EXAMINATION: GENERAL: When I saw her, this is a pleasant, alert female. INITIAL VITAL SIGNS: Showed a blood pressure 135/52, her pulse is 78 and regular. She was afebrile. Oxygen saturation 97% on 3 liters by nasal cannula. HEENT: Head is without trauma. Pupils are reactive. Sclerae nonicteric. Oropharynx is clear. NECK: Supple, no bruits identified. LUNGS: Minimal crackles at bases. CARDIOVASCULAR: Regular heart tones. No gallops. ABDOMEN: Soft. EXTREMITIES: Without edema. NEUROLOGIC: Intact. Speech is fluent. PERTINENT LABORATORY STUDIES: Hemoglobin 12.8 grams. White count 13,000. Electrolytes within normal range. Creatinine is 1.1 mg percent. Cardiac enzymes negative for coronary ischemia. Arterial blood gases; pH 7.36, pCO2 is 53, pO2 recorded at 31, this is a venous stick. Chest x-ray on admission showed increased diffuse reticular interstitial opacities, early pulmonary edema is part of the differential. ASSESSMENT: 1. An 80-year-old female with increasing dyspnea. 2. Acute on chronic congestive heart failure. 3. Paroxysmal atrial fibrillation. 4. Chronic anticoagulation. 5. Essential hypertension. 6. Hypothyroidism, on replacement. PLAN: 1. Admit to the inpatient unit. 2. Daily weights. 3. Intravenous Lasix has been ordered. 4. Potassium supplementation. 5. Serial chemistries. 6. Follow up chest x-ray. 7. Continue home meds. ESTELLA/PHILOMENA/MAXIMO DR: Yanet TID: [id number] CC: MASOOD MARQUEZ
[2020-12-10 11:35] VITALS: BP 111/50
[2020-12-10] MEDS: FUROSEMIDE 40 MG/4 ML VIAL IVP SCH (11:41)
[2020-12-10] MEDS: LOSARTAN 50 MG TABLET. PO SCH (12:30)
[2020-12-10] MEDS ORDERED: amLODIPine BESYLATE 2.5 MG TABLET PO SCH (12:30)
[2020-12-10] MEDS: OMEGA-3 FATTY ACIDS/FISH OIL 1,000 MG CAPSULE. PO SCH (13:00)
[2020-12-10] MEDS: SOTALOL 80 MG TABLET. PO SCH (13:00)
[2020-12-10] MEDS: MULTIVITAMIN I-VITE TABLET. PO SCH (13:01)
--- NOTE | 2020-12-10 14:45 | NUR ---
NURSING NOTE PT IN BED THIS AM UPON ASSESSMENT AND MEDICATION ADMINISTRATION. PT A&O. PT APPEARS MORE SOA THIS AFTERNOON THAN SHE WAS THIS AM. DR HERNANDEZ TOOK PT OFF OXYGEN, OXYGEN LEVEL 95%. ORDERS FOR LASIX OBTAINED. PT IS STAND BY ASSIST TO REST ROOM. PATRICK BUTLER
[2020-12-10 15:14] VITALS: BP 113/51
[2020-12-10] MEDS: APIXABAN 5 MG TABLET. PO SCH (17:24)
[2020-12-10 19:29] VITALS: BP 101/41
[2020-12-10] MEDS ORDERED: AZITHROMYCIN 250 MG TABLET. PO ONE (21:00)
[2020-12-10] MEDS: ATORVASTATIN CALCIUM 20 MG TABLET PO SCH (21:40)
[2020-12-10 23:00] VITALS: BP 118/69
[2020-12-11 05:50] VITALS: BP 99/60
[2020-12-11 06:25] LABS: CALCIUM 7.7 mg/dL (8.5-10.1); CREATININE 0.9 mg/dL (0.6-1.0); GFR 60.2; POTASSIUM 3.4 mmol/L (3.5-5.1)
[2020-12-11] MEDS ORDERED: MAGNESIUM SULFATE 1GM 100 ML IV ONE (08:30)
[2020-12-11] MEDS: LACTOBACILLUS RHAMNOSUS GG 1 CAPSULE. PO SCH ×2 (08:46→20:02)
[2020-12-11] MEDS: APIXABAN 5 MG TABLET. PO SCH ×2 (08:46→17:00)
[2020-12-11] MEDS: SOTALOL 80 MG TABLET. PO SCH (08:47)
[2020-12-11] MEDS: LEVOTHYROXINE 50 MCG TABLET PO SCH (08:47)
[2020-12-11] MEDS: FUROSEMIDE 40 MG/4 ML VIAL IVP SCH (08:48)
[2020-12-11] MEDS: MULTIVITAMIN I-VITE TABLET. PO SCH (08:48)
[2020-12-11] MEDS: POTASSIUM CHLORIDE 20 MEQ TABLET.ER. PO SCH ×2 (08:48→20:03)
[2020-12-11] MEDS: OMEGA-3 FATTY ACIDS/FISH OIL 1,000 MG CAPSULE. PO SCH (08:48)
[2020-12-11] MEDS: LOSARTAN 50 MG TABLET. PO SCH (08:53)
--- NOTE | 2020-12-11 09:07 | PN ---
DATE: 12/11/2020 DATE OF SERVICE: 12/11/2020 ATTENDING PHYSICIAN: Dr. Hernandez. SUBJECTIVE: The patient still has exertional dyspnea. Cough is nonproductive. She did sleep better. OBJECTIVE FINDINGS: VITAL SIGNS: Blood pressure this morning is 118/69, pulse is 64 and regular. She is afebrile. Oxygen saturation 97% on 2 liters by nasal cannula. I took her oxygen off yesterday, but they had to reapply this last night. HEENT: Head is without trauma. Pupils are reactive. Sclerae nonicteric. Oropharynx is clear. NECK: Supple, no bruits identified. LUNGS: Coarse rhonchi in the bases. CARDIOVASCULAR: Showed distant heart tones. No gallops. ABDOMEN: Soft. EXTREMITIES: Without edema. NEUROLOGIC FINDING: Focally intact. SKIN: Warm and dry. ASSESSMENT: 1. An 80-year-old female with acute respiratory failure. 2. Congestive heart failure by clinical exam. 3. Upper respiratory tract infection, atypical pneumonia cannot be ruled out. 4. Hypertension. 5. Paroxysmal atrial fibrillation. 6. Essential hypertension. 7. Hypothyroidism, on replacement. 8. Chronic anticoagulation. PLAN: 1. Continue diuretics as ordered. 2. Followup x-ray in the morning. 3. We shall wean down her oxygen demands. 4. Diet as tolerated. 5. Potassium replacement. ESTELLA/KECIA DR: ESTELLA/bertin TID: [id number]
--- NOTE | 2020-12-11 09:25 | RAD ---
EXAM: CHEST ONE VIEW. HISTORY: Pneumonia. COMPARISON: 12/10/2020. FINDINGS: A frontal view of the chest is obtained. A left-sided pacemaker has its leads in the right atrium and right ventricle. Interstitial and airspace infiltrates in the right greater than left bases appear mildly increased. T here is no pneumothorax or pleural effusion. The heart is not enlarged. There are atherosclerotic carol cifications of the aorta. Calcified lymph nodes likely reflect old granulomatous disease. IMPRESSION: 1. Right greater than left basilar interstitial and airspace infiltrates are mildly increased. Electronically signed by: Leanna Martínez MD (12/11/2020 9:23 AM) [id number]
[2020-12-11 11:12] VITALS: BP 107/59
[2020-12-11 15:36] VITALS: BP 110/58
--- NOTE | 2020-12-11 15:41 | NUR ---
Nurse note Patient has had uneventful shift, up to toilet with standby assist, patient continues on supplemental oxygen, denies pain, takes medications well. Patient treatment continues. No acute events.
[2020-12-11 19:00] VITALS: BP 120/61
[2020-12-11] MEDS: ATORVASTATIN CALCIUM 20 MG TABLET PO SCH (20:03)
[2020-12-11 22:58] VITALS: BP 105/65
[2020-12-12 06:44] LABS: CREATININE 0.7 mg/dL (0.6-1.0); GFR 80.5; POTASSIUM 4.1 mmol/L (3.5-5.1)
[2020-12-12 07:00] VITALS: BP 129/67
[2020-12-12] MEDS: OMEGA-3 FATTY ACIDS/FISH OIL 1,000 MG CAPSULE. PO SCH (08:12)
[2020-12-12] MEDS: APIXABAN 5 MG TABLET. PO SCH (08:13)
[2020-12-12] MEDS: LACTOBACILLUS RHAMNOSUS GG 1 CAPSULE. PO SCH (08:13)
[2020-12-12] MEDS: LEVOTHYROXINE 50 MCG TABLET PO SCH (08:14)
[2020-12-12] MEDS: MULTIVITAMIN I-VITE TABLET. PO SCH (08:14)
[2020-12-12] MEDS: FUROSEMIDE 40 MG/4 ML VIAL IVP SCH (08:14)
[2020-12-12] MEDS: POTASSIUM CHLORIDE 20 MEQ TABLET.ER. PO SCH (08:14)
[2020-12-12] MEDS: SOTALOL 80 MG TABLET. PO SCH (08:19)
[2020-12-12 08:32] VITALS: BP 129/67
[2020-12-12] MEDS: LOSARTAN 50 MG TABLET. PO SCH (08:32)
--- NOTE | 2020-12-12 08:53 | RAD ---
XR CHEST 1V INDICATION: F/U PNEUMONIA COMPARISON STUDY: 12/11/2020. FINDINGS: Life Support Devices: Left pectoral pacemaker. Lungs: Normal lung volume. Stable patchy right lung opacities. Pleura: No pleural effusion or pneumothorax. Heart and Mediastinum: Stable cardiomediastinal silhouette and great vessels. IMPRESSION: Stable patchy right lung opacities. Electronically signed by: Yang Kang MD (12/12/2020 8:51 AM) [id number]
--- NOTE | 2020-12-12 09:03 | NUR ---
Patient is alert and oriented x4. Up in bathroom getting cleaned up. Pt on 2L, crackles throughout lung pisano. Dr Hernandez turned patients oxygen off. At recheck patient is 90% on RA, pt DOMINGUEZ. This was reported to Dr Hernandez who stated, "Yes I know, this is fine. She will be going home". Pt told nursing staff sarcastically, "I had a nice conversation with Dr Hernandez. Is he always like that?" RN overheard the conversation of Dr Hernandez with the patient, Dr Hernandez's tone was very fong asking patient if she was ready to go home, pt said "I don't know" Dr Hernandez responded "you either are or your not. Your either comfortable with going home or you can go to a usp." Pt is not interested in going to a usp, but felt a little pushed out per patient. Dr Hernandez did speak with patients daughter. Daughter is on the way to pick patient up.
--- NOTE | 2020-12-12 10:53 | NUR ---
RN discussed discharge instructions, including discharge medications, diet, weighing self daily and follow up care. PT and daughter verbalized understanding. IV out and tele off. Pt leaving unit via w/c accompanied by daughter and RN, pt discharging home self care.
--- NOTE | 2020-12-12 17:24 | DS ---
DATE OF DISCHARGE: 12/12/2020 ATTENDING PHYSICIAN: Dr. Hernandez. FINAL DISCHARGE DIAGNOSES: 1. Congestive heart failure, acute on chronic. 2. Atypical pneumonia. 3. Upper respiratory tract infection. 4. Hypertension. 5. Paroxysmal atrial fibrillation. 6. Permanent pacemaker. 7. Essential hypertension, normotensive. 8. Coronary artery disease with previous myocardial infarction. 9. Hypothyroidism, on replacement. 10. Chronic anticoagulation. HISTORY AND PHYSICAL: The patient is an 80-year-old female with a known cardiac history. She presented with increasing shortness of breath, hypoxemia. Chest x-ray evidence of fluid in the fissures as well as atypical infiltrate. She was treated for both pneumonia and heart failure. PHYSICAL EXAMINATION: Please see the dictated note. PERTINENT LABORATORY AND X-RAY STUDIES: Admission hemoglobin was 12.8 g/dL, white count 13,800. Subsequent serial chemistries were drawn. Sodium was 142 mEq, potassium was down to 3.4 mEq, replaced up to 4.1 mEq, creatinine actually improved with diuresis. Admission creatinine was 1.1 mg/dL. With diuresis, it improved to 0.7 mg/dL suggesting that her fluid status was excess third space fluid and not from her vasculature. Her BNP was 1500 and her cardiac enzymes are negative for coronary ischemia. COURSE IN THE HOSPITAL: The patient was admitted. She was started on IV antibiotics as well as diuretics, daily weights, and serial chemistries. Followup x-ray showed improvement in clearing of her infiltrates in the right lower lobe as well as decreased fluid in fissure, permanent pacemaker remains in place. There is no cardiomegaly and the lung pisano are otherwise unchanged. The patient was admitted. She was started on both antibiotics and diuretics with marked improvement. Supplemental oxygen was administered and was weaned down. She had adequate saturation on room air prior to discharge. Electrolytes were followed. Diet was advanced and home meds continued. On the third hospital day, her lung sounded better. The rhonchi had improved and she was stable on room air. She had no pedal edema. At this time, I asked her about whether she needs a higher level of care. They requested home health, which can be done through the primary care doctor's office. I also talked in detail regarding plans with her daughter and caregiver, but she lives in [place], [place]. I also recommended given her component of heart failure, she get a set of bathroom scales and weigh herself every day and try to keep plus or minus 1 pound. I think the daughter understands. 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 Therefore, she is discharged home with a new script for Lasix 40 mg p.o. daily, K-Dur 20 mEq p.o. daily, cephalexin 500 mg p.o. t.i.d. for 5 more days. She will continue her Eliquis, Fosamax, calcium, cholecalciferol, Synthroid, omega-3 fish oil, Betapace. For now, she can stop her amlodipine, hydrochlorothiazide and Benicar. I suggested daily weights and followup visit with Dr. Bautista in 2 weeks' time. The patient was then discharged from our hospital in stable condition with explicit drug and followup care. Total discharge time spent 41 minutes. ESTELLA/BOONE/CARROLL DR: Yanet TID: [id number] CC: LORIN BAUTISTA MD
== END 2020-12-12 10:57 | disposition home or self-care (01) | DRG 291 ==
LOC: ER 02:07 → 1 SOUTH 03:29
PROVIDERS: ADMIT Hospitalist; ATTEND Hospitalist
DX: I11.0 Hypertensive heart disease with heart failure (principal); J18.9 Pneumonia, unspecified organism; J96.00 Acute respiratory failure, unspecified whether with hypoxia or hypercapnia; E44.1 Mild protein-calorie malnutrition; I50.23 Acute on chronic systolic (congestive) heart failure; E78.00 Pure hypercholesterolemia, unspecified; E03.9 Hypothyroidism, unspecified; I25.2 Old myocardial infarction; M81.0 Age-related osteoporosis without current pathological fracture; I48.0 Paroxysmal atrial fibrillation; I25.10 Atherosclerotic heart disease of native coronary artery without angina pectoris; J06.9 Acute upper respiratory infection, unspecified; M19.90 Unspecified osteoarthritis, unspecified site; Z79.899 Other long term (current) drug therapy; Z79.01 Long term (current) use of anticoagulants; Z95.0 Presence of cardiac pacemaker; Z68.24 Body mass index [BMI] 24.0-24.9, adult
CPT/HCPCS: 36415; 71045; 80048; 80053; 81001; 82803; 83605; 83880; 84484; 85025; 87040; 87086; 93005; 96361; 96365; J0456; J0696; J1940; J3475; J7050; 99285-25; J7030